=== PATIENT | male | born 1965 | race Caucasian/White ===

== ENCOUNTER → 2020-12-03 | Outpatient (CLI) | payer OTHER ==
[~2020-12-03] MED LIST: ACTOS 30 MG TAB30 M1 PO; ACTOS 30 MG TAB30 MG; ALDACTONE50 MG; ALLOPURINOL 30300 M3; ASPIRIN325 PO; ASPIRIN81 M2 PO; ATORVASTATIN CA40 MG PO; AUGMENTIN 875875 MG PO; BASAGLAR K100 UNIT/1 SUBQ; BENAZEPRIL HCL20 MG PO; BRILINTA90 MG PO; CELEXA40 MG PO; CEPHALEXIN 500500 M1 PO; FUROSEMIDE 40 M40 M1 PO; GLUCOPHAGE XR500 MG PO; HYDROCODON-ACE1 EAC7 PO; IRON325 PO; JARDIANCE25 MG PO; LIPITOR 20 MG T20 M1 PO; LISINOPRIL20 MG; LOTRISONE CREAM15 GM TP; METFORMIN HCL1000 M1; MIRAPEX 0.250.25 M1 PO; NORVASC10 MG; ONGLYZA5 MG PO; PERCOCET 5-3251 EACH PO; PRINIVIL20 MG PO; ROPINIROLE HCL0.5 MG PO; SSD25 GM TP; TOPROL XL100 MG PO; TOPROL XL200 MG; TOPROL XL200 MG PO; ULORIC40 MG PO; VICTOZA0.6 MG/0.1 SUBQ; VITAMIN D31000 UNI2 PO; WELLBUTRIN XL300 MG PO; ZOCOR40 MG PO; [UNRECOGNIZED DRUG - OTHER]
== END ==
LOC: SJCVCIMAG 08:56
PROVIDERS: ATTEND Internal Medicine
DX: I25.10 Atherosclerotic heart disease of native coronary artery without angina pectoris (principal); I10 Essential (primary) hypertension; Z95.810 Presence of automatic (implantable) cardiac defibrillator; Z86.74 Personal history of sudden cardiac arrest

== ENCOUNTER 2021-01-17 19:09 | Emergency (ER) | payer OTHER ==
[~2021-01-17] VITALS: Ht 175.3 cm; Wt 188.7 kg
[2021-01-17 19:30] VITALS: BP 188/107
[2021-01-17 19:41] LABS: BASOPHILS 0.9 % (0.0-2.0); EOSINOPHILS 0.8 % (0.0-3.0); HEMATOCRIT 47.7 % (42.0-52.0); HEMOGLOBIN 15.9 gm/dL (14.0-18.0); LYMPHOCYTES 16.4 % (24.0-44.0); MCH 28.5 pg (26.0-34.0); MCHC 33.4 g/dL (28.0-37.0); MCV 85.4 fL (80.0-100.0); MONOCYTES 6.2 % (1.0-8.0); PLATELET COUNT 236 thou/uL (150-400); POLYS 75.7 % (36.0-66.0); RBC 5.58 mil/uL (4.50-6.00); RDW 16.1 % (10.5-14.5); WBC 13.3 thou/uL (4.0-11.0)
[2021-01-17] MEDS ORDERED: LANTUS SUBQ (19:51)
[2021-01-17] MEDS ORDERED: PRAMIPEXOLE D0.25 MG PO (19:52)
[2021-01-17] MEDS ORDERED: AMLODIPINE BESY10 MG PO (19:52)
[2021-01-17] MEDS ORDERED: PRAMIPEXOLE DI0.5 MG PO (19:52)
[2021-01-17] MEDS ORDERED: PRINIVIL20 MG PO (19:52)
[2021-01-17 19:57] LABS: ALBUMIN 3.6 g/dL (3.4-5.0); CALCIUM 9.6 mg/dL (8.5-10.1); CREATININE 1.6 mg/dL (0.7-1.3); MAGNESIUM 2.2 mg/dL (1.8-2.4); TOTAL BILIRUBIN 0.8 mg/dL (0.2-1.0); TOTAL PROTEIN 8.5 g/dL (6.4-8.2); TROPONIN-I 0.29 ng/mL (<0.06)
[2021-01-17] MEDS ORDERED: ROSUVASTATIN CA40 MG PO (19:57)
[2021-01-17 20:00] VITALS: BP 179/106
[2021-01-17] MEDS ORDERED: TOPROL XL100 MG PO (20:53)
[2021-01-17] MEDS ORDERED: CITALOPRAM HBR40 MG PO (20:54)
[2021-01-17 21:16] LABS: CHOLESTEROL 219 mg/dL (<200); HDL CHOLESTEROL 36 mg/dL (>40); LDL CHOLESTEROL 105 mg/dL (<100); TC:HDL 6.1 Ratio (Not establshd); TRIGLYCERIDE 391 mg/dL (<150); VLDL 78 mg/dL (<40)
--- NOTE | 2021-01-18 07:21 | EKG ---
[place] [address] [address] [place] [employer] [place] [address] ELECTROCARDIOGRAM REPORT Name: BENNIENUHA [id number] Admission: 01/17/21 Attend Phys: Discharge: 01/17/21 Date of : 69 Report #: [id number] [facility] ED Test Date: 2021-01-17 Test Time: 19:15:05 Pat Name: NUHA AVERY Department: Room: 170 Gender: M Harp Maker: DEWAYNE : 1965 Requested By: Fiorella Cruz Order Number: [id number] MD: Elia Lazaro Measurements Intervals [place] Rate: 90 P: 60 LA: 204 QRS: 74 QRSD: 115 T: 49 QT: 353 QTc: 432 Interpretive Statements Sinus rhythm Borderline prolonged LA interval Nonspecific intraventricular conduction delay Inferior infarct, acute (RCA) Probable RV involvement, suggest recording right precordial leads Compared to ECG 03/08/2018 06:27:21 Intraventricular conduction delay now present Myocardial infarct finding now present ST (T wave) deviation now present Electronically Signed On 01-18-2021 7:21:02 CDT by Elia Lazaro [email or web address] <ELECTRONICALLY SIGNED> By: Elia Lazaro MD, FACC 01/18/21 0721 14 14 Elia Lazaro MD, FAC /EPI
[2021-01-19 00:06] LABS: GLYCOHEMOGLOBIN (HGB A1C) 11.9 % (4.8-5.6)
--- NOTE | 2021-01-19 16:33 | HC ---
[facility] [place] [address] CONSULTATION Name: NUHA AVERY Room #: DEP [facility]#: [id number] Admission: 01/17/21 Attend Phys: Discharge: 01/17/21 Date of : 69 Report #: [id number] THIS REPORT FOR: cc: Luis Alfredo Ward,Geraldo Saha MD [facility] ~ DATE OF SERVICE: 01/17/2021 REASON FOR CONSULTATION: Chest pain. HISTORY OF PRESENT ILLNESS: The patient is a 55-year-old gentleman with a history of diabetes and morbid obesity. He has a history of coronary artery disease with stenting with a 3.0 x 15 mm Resolute stent several years ago. Now presents with midsternal chest pain, reminiscent to his pre-stent discomfort. This occurred off and on yesterday, although has been persistent since about noon today. He presented to the Emergency Department where an EKG demonstrated inferior injury pattern. The pain is associated with diaphoresis and radiation to the jaw. The pain has improved with heparin and aspirin. He denies heart failure symptoms including orthopnea or paroxysmal nocturnal dyspnea. No history of near syncope or syncope. He does have a history of remote ICD placement with upcoming need for generator change. There is a Medtronic single chamber device. ALLERGIES: He is allergic To PENICILLIN AND SULFA. MEDICATIONS: Include aspirin 81 mg daily, Wellbutrin-XL 300 mg daily, citalopram 40 mg daily, Lantus 45 units at night, Humalog 3 times a day with meals, iron 1 a day, Victoza 18 mcg subcutaneous daily, lisinopril 20 mg daily, Toprol-XL 100 mg daily, Mirapex 0.5 mg twice daily with an additional 0.25 mg at night, rosuvastatin 40 mg daily. PAST MEDICAL HISTORY: Medical records have been reviewed and include history of diabetes, ADHD, depression, coronary artery disease, nephrolithiasis, osteoarthritis, sleep apnea on CPAP, prior ventricular fibrillation with ICD placement. SOCIAL HISTORY: He is , never been a smoker. FAMILY HISTORY: Notable for mother with lung cancer. No history of premature coronary artery disease. REVIEW OF SYSTEMS: All systems negative except as that noted above. PHYSICAL EXAMINATION: GENERAL: Reveals a pleasant gentleman who is alert and in no distress. [address] [address] CONSULTATION Name: BENNIENUHA [facility]: [facility] [id number] Admission: 01/17/21 Attend Phys: Discharge: 01/17/21 Date of : 69 Report #: [id number] VITAL SIGNS: Blood pressure is 120/90, heart rate of 80 and regular, respirations unlabored at 18. He is 416 pounds, 5 feet 9 inches tall. HEENT: There are neither xanthelasma, subcutaneous xanthomata, oral mucosal or digital cyanosis or kyphoscoliosis present. CHEST: Clear to auscultation and percussion. CARDIAC: Regular rate and rhythm with distant heart tones. ABDOMEN: Soft, morbidly obese. EXTREMITIES: Without edema or cyanosis. Radial pulses are 2+. NEUROLOGIC: He is alert with a nonfocal exam. LABORATORY DATA: Blood work remains pending. White count 13.3, hemoglobin 15, hematocrit 47, platelet count 236. Recent echo in November demonstrated a normal left ventricular systolic function. Significant valvular disease was absent. IMPRESSION: 1. Acute inferior myocardial infarction. 2. Remote ventricular fibrillation arrest with Medtronic ICD placement, single lead. 3. Hypertension. 4. Diabetes. 5. Sleep apnea. 6. Morbid obesity. RECOMMENDATIONS: 1. Urgent coronary angiography. 2. Continued efforts towards weight loss and aggressive risk factor modification. 3. The angiographic procedure was discussed in detail including its associated risks. After a thorough discussion of the procedure, its risks and alternatives and after answering his questions, he is agreeable to proceeding. <ELECTRONICALLY SIGNED> By: Geraldo Mcleod MD, [facility] 01/19/21 [id number] Geraldo Mcleod MD, FACC /nt
== END 2021-01-17 20:05 | disposition short-term general hospital (02) ==
LOC: ER 19:09 → EROBS 19:59 → ER 19:59
PROVIDERS: Emergency Medicine; Nurse Practitioner Family
DX: I21.3 ST elevation (STEMI) myocardial infarction of unspecified site (principal); E11.65 Type 2 diabetes mellitus with hyperglycemia; I10 Essential (primary) hypertension; E78.5 Hyperlipidemia, unspecified; M10.9 Gout, unspecified; Z79.4 Long term (current) use of insulin; Z79.899 Other long term (current) drug therapy; Z88.0 Allergy status to penicillin; Z88.2 Allergy status to sulfonamides

== ENCOUNTER → 2021-03-05 | Outpatient (CLI) | payer OTHER ==
[~2021-03-05] MED LIST changes: +AMLODIPINE BESY10 MG PO; +CITALOPRAM HBR40 MG PO; +LANTUS SUBQ; +PRAMIPEXOLE D0.25 MG PO; +PRAMIPEXOLE DI0.5 MG PO; +ROSUVASTATIN CA40 MG PO
== END ==
LOC: LAB 11:15
PROVIDERS: ATTEND Internal Medicine Cardiovascular Disease
DX: Z01.812 Encounter for preprocedural laboratory examination (principal); Z20.822 Contact with and (suspected) exposure to COVID-19

== ENCOUNTER → 2021-03-08 | Outpatient (CLI) | payer OTHER ==
[~2021-03-08] VITALS: Ht 175.3 cm; Wt 190.0 kg
[~2021-03-08] MED LIST changes: +CHILDREN'S15 MG/1 M2 PO; +VITAMIN D31 ML PO
--- NOTE | ~2021-03-08 | P ---
[address] [place] [address] PROCEDURE REPORT Name: BENNIENUHA JR Room #: REG [facility]#: [id number] Admission: 03/08/21 Attend Phys: Ramirez Jiménez MD Discharge: Date of : 69 Report #: [id number] THIS REPORT FOR: cc: Luis Alfredo Ward,Ramirez Cheung MD ~ DOC #: [id number] Ramirez Jiménez MD DATE OF SERVICE: 03/08/2021 PROCEDURE: ICD generator change. PREOPERATIVE DIAGNOSIS: ICD, CAMILO. POSTOPERATIVE DIAGNOSIS: ICD, CAMILO. HISTORY: The patient is a 55-year-old male with history of coronary artery disease status post ischemic cardiomyopathy, status post prior ICD implantation whose device is currently at the elective replacement interval. He is here for ICD generator exchange. ANESTHESIA: The patient underwent MAC anesthesia with no anesthesia related complications. DESCRIPTION OF PROCEDURE: The patient underwent informed consent. We discussed the details of the procedure including the risks, which include but not limited to bleeding, infection, vascular damage, and need for possible lead revisions. He understood these risks and is willing to proceed. The patient was brought to the EP laboratory in a fasting and sedated state, prepped and draped in a sterile fashion receiving vancomycin for antibiotic prophylaxis. Next, I injected lidocaine below the prior incision site. Incision was made. Chronic pocket was entered, device was disconnected from the old lead. The lead was inspected and found to be in satisfactory condition. New device connected. Tug test was performed placed back in the pocket, pocket irrigated with vancomycin. Then, the pocket was closed in two layers using 2-0 for the deep layer, 3-0 for the middle layer. Surgical glue was placed throughout her skin layer. The patient awoke neurologically and hemodynamically intact. No complications. No significant bleeding. The explanted device was a Medtronic model number U061SCC, serial number [id number]. The new device was a Medtronic model number OCAE6R1, serial number [id number]. The ICD lead was a Medtronic 6947, 62 cm, serial number [id number], implanted on 06/06/2012. RV lead demonstrated R waves of 12.4 millivolts, pacing impedance 14 ohms, pacing threshold 1.25 volts at 0.4 milliseconds. The device was programmed back to its nominal settings. [facility] [address] [place] [address] PROCEDURE REPORT Name: NUHA AVERY JR Room #: REG [facility]#: [id number] Admission: 03/08/21 Attend Phys: Ramirez Jiménez MD Discharge: Date of : 69 Report #: [id number] CONCLUSION: Successful ICD generator exchange. Ramirez Jiménez MD LFC/MANAN/HORACE By: [id number] [id number] Ramirez Jiménez MD /nakita
[2021-03-08 07:31] VITALS: BP 145/79
[2021-03-08 07:49] LABS: HEMATOCRIT 44.4 % (42.0-52.0); HEMOGLOBIN 14.9 gm/dL (14.0-18.0); MCH 29.2 pg (26.0-34.0); MCHC 33.5 g/dL (28.0-37.0); MCV 87.3 fL (80.0-100.0); RBC 5.09 mil/uL (4.50-6.00); RDW 16.2 % (10.5-14.5); WBC 10.1 thou/uL (4.0-11.0)
[2021-03-08 08:04] LABS: APTT 25.3 Seconds (24.5-32.8); INR 0.98; PROTIME 10.7 Seconds (10.5-12.1)
[2021-03-08 08:05] LABS: CREATININE 1.5 mg/dL (0.7-1.3); POTASSIUM 3.9 mmol/L (3.5-5.1)
[2021-03-08 08:10] LABS: ALBUMIN 3.4 g/dL (3.4-5.0); TOTAL BILIRUBIN 0.7 mg/dL (0.2-1.0); TOTAL PROTEIN 7.6 g/dL (6.4-8.2)
== END | disposition home or self-care (01) ==
LOC: CATH 06:23
PROVIDERS: ATTEND Internal Medicine Cardiovascular Disease
DX: Z45.02 Encounter for adjustment and management of automatic implantable cardiac defibrillator (principal); I25.5 Ischemic cardiomyopathy; I25.10 Atherosclerotic heart disease of native coronary artery without angina pectoris; I10 Essential (primary) hypertension; E11.9 Type 2 diabetes mellitus without complications; M10.9 Gout, unspecified; E78.5 Hyperlipidemia, unspecified; G47.30 Sleep apnea, unspecified; E66.3 Overweight; I48.91 Unspecified atrial fibrillation; Z98.890 Other specified postprocedural states; Z79.899 Other long term (current) drug therapy; Z79.4 Long term (current) use of insulin; Z88.0 Allergy status to penicillin; Z88.2 Allergy status to sulfonamides; Z79.82 Long term (current) use of aspirin; Z79.01 Long term (current) use of anticoagulants; Z82.49 Family history of ischemic heart disease and other diseases of the circulatory system
CPT/HCPCS: 62110; 62900; 70005